=== PATIENT | female | born 1955 | race Two or more races ===

== ENCOUNTER 2017-08-14 17:16 | Emergency (ER) | payer MEDICAID ==
[~2017-08-14] VITALS: Ht 162.6 cm; Wt 81.6 kg
--- NOTE | 2017-08-14 17:20 | NUR ---
C/O RIGHT FOOT PAIN, STS, SHE HEARD IT CRACKED WHILE BEING TRANSFERED THIS AM, NAD NOTED, VSS, PT PUT ON MONITOR, WAITING FOR MD ANTONIO.
[2017-08-14 19:03] VITALS: BP 110/76
--- NOTE | 2017-08-14 19:05 | NUR ---
Patient is resting comfortably in bed with eyes closed. Easily aroused. VSS
== END 2017-08-14 19:46 | disposition home or self-care (01) ==
LOC: ER 17:18
DX: M79.671 Pain in right foot (principal); Z99.3 Dependence on wheelchair
CPT/HCPCS: 73630; 99284; A4606; Z7610